=== PATIENT | female | born 2000 ===

== ENCOUNTER 2018-02-16 22:47 | Emergency (ER) | payer MEDICAID ==
[2018-02-16 23:49] VITALS: BP 142/90
--- NOTE | 2018-02-17 00:22 | XRay Report ---
FINAL REPORT EXAM: XR HAND 3+V LT HISTORY: LEFT HAND injury, pain, swelling TECHNIQUE: Three views of the left hand were submitted. FINDINGS: There is no evidence of fracture or soft tissue injury. The wrist joint is well maintained. IMPRESSION: Within normal limits.
--- NOTE | 2018-02-17 04:37 | Emergency Department Report ---
ED Upper Extremity Inj HPI - General Chief Complaint: Extremity Injury, Upper Stated Complaint: LT HAND PAIN;SWELLING Time Seen by Provider: 02/17/18 04:36 Source: patient Mode of arrival: Ambulatory Limitations: No Limitations - History of Present Illness Initial Comments: This is a 17-year-old -[place] female that presents with left hand swelling and pain after slamming in a door at home yesterday. Patient reports she accidentally slammed the door on her left hand. She immediately applied ice to the area. Reports feeling numbness after taking ice off at home and decided to come in for evaluation. Reports not being unable to move pinky finger on left hand. States pain is 10 out of 10 with touch or movement. Denies redness, laceration, numbness or tingling, bleeding, nausea/vomiting, shortness of breath, and chest pain Complaint: Injury to:: left, hand -: Last night Other Extremity Injury: Fingers: Left (5th digit) Other Injuries: none Handedness: right Place: home Severity scale (0 -10): 9 Improves With: cold therapy Worsens With: movement of extremity Context: direct blow Associated Symptoms: denies other symptoms Treatments Prior to Arrival: cold therapy - Related Data Previous Rx's Medication Instructions Recorded Last Taken Type Naproxen [Naprosyn] 500 mg PO TID PRN #20 tablet 02/17/18 Unknown Rx Allergies Allergy/AdvReac Type Severity Reaction Status Date / Time No Known Allergies Allergy Unverified 02/16/18 23:48 ED Review of Systems ROS: Stated complaint: LT HAND PAIN;SWELLING Other details as noted in HPI Constitutional: denies: chills, fever Respiratory: denies: cough, shortness of breath, wheezing Cardiovascular: denies: chest pain, palpitations Gastrointestinal: denies: abdominal pain, nausea, diarrhea Musculoskeletal: arthralgia (5th digit pain). denies: back pain, joint swelling Skin: denies: rash, lesions Neurological: denies: headache, weakness, numbness, paresthesias Psychiatric: denies: anxiety, depression ED Past Medical Hx - Past Medical History Previous Medical History?: No - Surgical History Past Surgical History?: No - Social History Smoking Status: Never Smoker Substance Use Type: None - Medications Home Medications: Home Medications Medication Instructions Recorded Confirmed Last Taken Type Naproxen [Naprosyn] 500 mg PO TID PRN #20 tablet 02/17/18 Unknown Rx ED Physical Exam - General Limitations: No Limitations General appearance: alert, in no apparent distress - Respiratory Respiratory exam: Present: normal lung sounds bilaterally. Absent: respiratory distress, wheezes, rales, rhonchi, stridor, accessory muscle use - Cardiovascular Cardiovascular Exam: Present: regular rate, normal rhythm, normal heart sounds. Absent: systolic murmur, diastolic murmur, rubs, gallop - GI/Abdominal GI/Abdominal exam: Present: soft, normal bowel sounds. Absent: distended, tenderness, guarding, rebound, rigid, organomegaly, mass - Extremities Exam Extremities exam: Present: normal inspection. Absent: normal capillary refill, pedal edema, calf tenderness - Expanded Upper Extremity Exam Left Shoulder Exam: Present: normal inspection, full ROM Upper Arm exam: Present: normal inspection, full ROM Elbow exam: Present: normal inspection, full ROM Forearm Wrist exam: Present: normal inspection, full ROM Hand Wrist exam: Present: normal inspection, tenderness (point tender over 5th proximal metcarpal, mild swelling medial), swelling. Absent: laceration, ecchymosis, deformity, crepidus, dislocation, erythema, amputation, nail avulsion Neuro motor exam: Present: wrist extension intact, thumb opposition intact, thumb IP flexion intact, thumb adduction intact Neurosensory exam: Present: radial nerve intact, median nerve intact Vascular: Present: normal capillary refill, radial pulse - Neurological Exam Neurological exam: Present: alert, oriented X3, normal gait - Psychiatric Psychiatric exam: Present: normal affect, normal mood ED Course Vital Signs 02/16/18 23:40 Temperature 98.1 F Pulse Rate 96 H Respiratory 12 Rate Blood Pressure 142/90 O2 Sat by Pulse 100 Oximetry ED Medical Decision Making - Radiology Data Radiology results: report reviewed EXAM: XR HAND 3+V LT HISTORY: LEFT HAND injury, pain, swelling TECHNIQUE: Three views of the left hand were submitted. FINDINGS: There is no evidence of fracture or soft tissue injury. The wrist joint is well maintained. IMPRESSION: Within normal limits. - Medical Decision Making This is a 17 y.o.A. A. female presents with the left fifth digit pain status post slamming in the door at home last night. Patient was examined by me. Vitals are stable. X-ray of left hand pain and normal. Patient informed of normal results will start naproxen for pain. Apply velcro boxer splint to left hand. Physical findings susceptible of muscle strain. Plan discussed with patient to discharge home and treat outpatient. Patient discharged home in stable condition. Follow up with PCP in 2-3 days. Critical care attestation.: If time is entered above; I have spent that time in minutes in the direct care of this critically ill patient, excluding procedure time. ED Disposition Clinical Impression: Muscle strain of finger of left hand Disposition: TO HOME OR SELFCARE Is pt being admited?: No Does the pt Need Aspirin: No Condition: Stable Instructions: Muscle Strain (ED) Additional Instructions: Rest Use ice or heat on affected area for 20 minutes and off for 2 hours. Take pain medication as needed for pain. Follow up with Primary Care Provider in 2-3 days. Prescriptions: Naproxen [Naprosyn] 500 mg PO TID PRN #20 tablet PRN Reason: Pain Referrals: [facility] [Outside] - 3-5 Days [facility] [Outside] - 3-5 Days [facility] [Outside] - 3-5 Days Forms: Work/School Release Form(ED) Time of Disposition: 05:19 Print Language: CROATIAN
== END 2018-02-17 05:25 | disposition home or self-care (01) ==
LOC: ED 22:47
DX: S56.418A Strain of extensor muscle, fascia and tendon of left little finger at forearm level, initial encounter (principal); W23.0XXA Caught, crushed, jammed, or pinched between moving objects, initial encounter; Y93.89 Activity, other specified; Y99.8 Other external cause status; Y92.009 Unspecified place in unspecified non-institutional (private) residence as the place of occurrence of the external cause